=== PATIENT | female | born 1955 | race American Indian/Alaskan Native ===

== ENCOUNTER 2017-03-14 08:43 | Outpatient (CLI) | payer OTHER ==
--- NOTE | 2017-03-14 09:33 | Mammography Report ---
Screening mammogram: Routine views demonstrate a generally fatty replaced breast pattern bilaterally. There is a small circumscribed asymmetry in the superolateral right breast. The findings are otherwise unremarkable. CAD used. Impression: Right breast asymmetry. Recommendation Prior exams are questioned comparison. F/U recommendation will be made following comparison. BI-RADS CATEGORY: 0 = Needs additional imaging evaluation ACR BI-RADS MAMMOGRAPHIC CODES: 0 = Needs additional imaging evaluation; 1 = Negative; 2 = Benign; 3 = Probably benign; 4 = Suspicious; 5 = Malignant; 6 = Known biopsy-proven malignancy COMMENT: 1. Dense breast tissue, i.e., adenosis, fibrocystic changes, etc., may obscure an underlying neoplasm. 2. Approximately 10% of cancers are not detected with mammography. 3. A negative mammography report should not delay biopsy if a clinically suspicious mass is present.
== END 2017-03-14 08:44 | disposition home or self-care (01) ==
LOC: MAMMO 08:43
PROVIDERS: ATTEND Internal Medicine
DX: Z12.31 Encounter for screening mammogram for malignant neoplasm of breast (principal)
CPT/HCPCS: 77067; G0202

== ENCOUNTER 2018-06-08 09:57 | Inpatient (IN) | payer OTHER ==
[2018-06-08] MEDS ORDERED: NACL 0.9% 1000 ML 1,000 ML IV ONE (10:18)
[2018-06-08] MEDS ORDERED: ZOFRAN IV ONE ×2 (10:27→14:41)
[2018-06-08] MEDS ORDERED: MORPHINE IV ONE ×2 (10:27→14:41)
[2018-06-08 10:38] LABS: Basophils % (Auto) 0.4 % (0.0-1.8); Eosinophils # (Auto) 0.1 K/mm3 (0.0-0.4); Hematocrit 35.5 % (30.3-42.9); Hemoglobin 12.1 gm/dl (10.1-14.3); Lymphocytes # (Auto) 2.1 K/mm3 (1.2-5.4); Lymphocytes % (Auto) 24.4 % (13.4-35.0); Mean Corpuscular HGB Conc 34 % (30-34); Mean Corpuscular Volume 90 fl (79-97); Monocytes # (Auto) 0.6 K/mm3 (0.0-0.8); Monocytes % (Auto) 6.4 % (0.0-7.3); Platelet Count 277 K/mm3 (140-440); Red Blood Count 3.96 M/mm3 (3.65-5.03); Red Cell Distribution Width 14.4 % (13.2-15.2)
[2018-06-08 10:46] LABS: Bacteria,Urine 1+ /HPF (Negative); Bilirubin,Urine NEG (Negative); Blood,Urine SM (Negative); Color,Urine Yellow (Yellow); Mucus,Urine FEW /HPF; RBC,Urine < 1.0 /HPF (0.0-6.0); Urobilinogen,Urine < 2.0 mg/dL (<2.0)
[2018-06-08 11:04] LABS: Alanine Aminotransferase 30 units/L (7-56); Albumin 4.3 g/dL (3.9-5); BUN/Creatinine Ratio 20; Blood Urea Nitrogen 16 mg/dL (7-17); Calcium 9.5 mg/dL (8.4-10.2); Hemolysis Index 2
[2018-06-08 11:05] LABS: Bilirubin,Direct < 0.2 mg/dL (0-0.2)
--- NOTE | 2018-06-08 12:29 | Emergency Department Report ---
ED Abdominal Pain HPI - General Chief Complaint: Abdominal Pain Stated Complaint: DIARRHEA/STOMACH PAIN Time Seen by Provider: 06/08/18 10:26 Source: patient Mode of arrival: Ambulatory Limitations: No Limitations - History of Present Illness Initial Comments: This is a 63-year-old female nontoxic, well nourished in appearance, no acute signs of distress presents to the ED with c/o of nausea and vomiting and abdominal pain 2 days. Patient describes vomiting as food content and yellow gastric acid. Patient describes abdominal pain as cramping and aching with level of 8/10 diffuse. Patient denies chest pain, short of breath, fever, chills, headache, stiff neck, numbness or tingling. Patient denies any diarrhea or constipation. Patient denies any recent travels. Patient stated allergies to PCN. MD Complaint: abdominal pain -: days(s) (2) Location: diffuse Radiation: none Severity: mild Severity scale (0 -10): 8 Quality: cramping, aching Consistency: constant Improves With: nothing Worsens With: nothing Associated Symptoms: denies other symptoms. denies: nausea, vomiting, diarrhea, fever, chills, constipation, dysuria, hematemesis, hematochezia, melena, hem aturia, anorexia, syncope - Related Data Allergies Allergy/AdvReac Type Severity Reaction Status Date / Time Penicillins AdvReac Anaphylaxis Verified 06/08/18 09:59 ED Review of Systems ROS: Stated complaint: DIARRHEA/STOMACH PAIN Other details as noted in HPI Constitutional: denies: chills, fever Eyes: denies: eye pain, eye discharge, vision change ENT: denies: ear pain, throat pain Respiratory: denies: cough, shortness of breath, wheezing Cardiovascular: denies: chest pain, palpitations Endocrine: no symptoms reported Gastrointestinal: abdominal pain, nausea, vomiting. denies: diarrhea Genitourinary: denies: urgency, dysuria, discharge Musculoskeletal: denies: back pain, joint swelling, arthralgia Skin: denies: rash, lesions Neurological: denies: headache, weakness, paresthesias Psychiatric: denies: anxiety, depression Hematological/Lymphatic: denies: easy bleeding, easy bruising ED Past Medical Hx - Past Medical History Previous Medical History?: Yes Hx Hypertension: Yes Additional medical history: high cholestrol - Surgical History Past Surgical History?: Yes Additional Surgical History: hysterectomy - Social History Smoking Status: Never Smoker Substance Use Type: None ED Physical Exam - General Limitations: No Limitations General appearance: alert, in no apparent distress - Head Head exam: Present: atraumatic, normocephalic - Eye Eye exam: Present: normal appearance - Neck Neck exam: Present: normal inspection, full ROM. Absent: tenderness, meningismus, lymphadenopathy - Respiratory Respiratory exam: Present: normal lung sounds bilaterally. Absent: respiratory distress, wheezes, rales, rhonchi, stridor, chest wall tenderness, accessory muscle use, decreased breath sounds, prolonged expiratory - Cardiovascular Cardiovascular Exam: Present: regular rate, normal rhythm, normal heart sounds. Absent: bradycardia, tachycardia, irregular rhythm, systolic murmur, diastolic murmur, rubs, gallop - GI/Abdominal GI/Abdominal exam: Present: soft, tenderness, normal bowel sounds. Absent: distended, guarding, rebound, rigid, diminished bowel sounds - Expanded GI/Abdominal Exam Expanded GI/Abdominal exam: Absent: psoas sign, Mohan's sign, Rovsing's sign, tenderness at Mcburney's Point, ascites - Extremities Exam Extremities exam: Present: normal inspection, full ROM - Back Exam Back exam: Present: normal inspection, full ROM - Neurological Exam Neurological exam: Present: alert, oriented X3 - Psychiatric Psychiatric exam: Present: normal affect, normal mood - Skin Skin exam: Present: warm, dry, intact, normal color. Absent: rash ED Course Vital Signs 06/08/18 06/08/18 06/08/18 10:16 10:47 14:49 Temperature 97.9 F Pulse Rate 85 Respiratory 18 15 18 Rate Blood Pressure 137/56 O2 Sat by Pulse 98 100 Oximetry - Reevaluation(s) Reevaluation #1: 06/08/18 12:25 Patient is speaking in full sentences with no signs of distress noted. 06/08/18 14:57 PAtient is resting comfortable. Patient stated is still in pain. Patient was unable to tolerate PO challenge. Will admit patient. - Consultations Consultation #1: 06/08/18 14:27 Patient has been consulted with Erin Brown about patient history, physical exam, and labs/CT agrees to the ED plan of care and admission. ED Medical Decision Making - Lab Data Result diagrams: 06/08/18 10:22 06/08/18 10:35 - Medical Decision Making This is a 62-year-old female that presents with diverticulitis with nausea vomiting. Patient is stable and was examined by me. There is slight abdominal tenderness. Negative signs of symptoms of appendicitis. Labs obtained. UA obtained. CT with contrast of abdomen obtained and dictated by the radiologist. Patient is notified of the report with no questions noted by the patient. Vital signs are stable prior to discharge. Patient received medical treatment with IV levo and Flagyl in the ED. A by mouth challenge has been obtained and patient was not able to tolerate. Patient received several dose of pain and nausea with minimal help. Patient admitted with Dr. Muro. At time of admission, the patient does not seem toxic or ill in appearance. No acute signs of distress noted. Patient agrees to admission treatment plan of care. No further questions noted by the patient. Critical care attestation.: If time is entered above; I have spent that time in minutes in the direct care of this critically ill patient, excluding procedure time. ED Disposition Clinical Impression: Diverticulitis Intractable nausea and vomiting Qualifiers: Vomiting type: unspecified Qualified Code(s): R11.2 - Nausea with vomiting, unspecified Disposition: DC-09 OP ADMIT IP TO THIS HOSP Is pt being admited?: Yes Condition: Stable
--- NOTE | 2018-06-08 13:53 | Cat Scan Report ---
PROCEDURE: CT ABDOMEN PELVIS W CON TECHNIQUE: CT examination of the abdomen with IV contrast CT examination of the pelvis with IV contrast HISTORY: abd pain COMPARISONS: None FINDINGS: Slight linear scar versus atelectasis both lung bases. Degenerative change in the regional skeleton. No evidence of acute fracture. Grade 1 degenerative ant erolisthesis at L4-5. Slight cardiomegaly without pericardial effusion. A smoothly marginated hypodense right hepatic lobe lesion is nonspecific and statistically most likel y reflects a cyst or hemangioma. It is too small to characterize. Normal-appearing gallbladder, common bile diameter, pancreas, and spleen. Nonspecific slight prominence of both adrenals may reflect mild hyperplasia and/or small nodules. Intact normal caliber abdominal aorta with moderate calcified atherosclerotic plaque. Normal caliber IVC. Nonspecific, smoothly marginated, low density, simple appearing right renal lesions are statistically most likely cysts. No evidence of renal calculus or hydronephrosis. Slight distention of the right u reter to the pelvic level without calculus. Distention extends to the level of pelvic inflammatory ch cindy. Very small fat-containing umbilical hernia. No inguinal hernia. No retroperitoneal adenopathy. No jennifer dence of mesenteric mass. Normal-appearing stomach and duodenum. No small bowel distention in the abd omen and pelvis. Trace pelvic free fluid may be reactive. There is moderate sigmoid diverticulosis with mural thickening and adjacent fat stranding, as well as thickening of the sigmoid mesocolon. These findings are most compatible with moderate diverticulitis . No definite CT evidence of perforation or diverticular abscess. Nonspecific diffuse mural thickening in the distal rectum. Slight diverticulosis descending colon. No gross ascites, free air, or colonic distention. Slight prominence of feces in the ascending and transverse colon may reflect mild proximal constipati on. Normal-appearing terminal ileum and appendix. No focal signal abnormality. IMPRESSION: Findings suggest moderate sigmoid diverticulitis. Slight distention of the right ureter may be secon conrad to inflammatory change in the pelvis. Trace pelvic free fluid may be reactive. Nonspecific diffuse mural thickening in the distal rectum may reflect edema, inflammation, or proctit is. Differential includes inflammatory bowel disease Slight prominence of feces in ascending and transverse colon may reflect mild proximal constipation Slight diverticulosis descending colon Nonspecific slight prominence of both adrenals may reflect mild hyperplasia and/or small nodules Slight cardiomegaly without pericardial effusion Grade 1 degenerative anterolisthesis at L4-5 This document is electronically signed by Rogelio Bhandari MD., June 08 2018 01:51:55 PM ET
[2018-06-08] MEDS ORDERED: LEVAQUIN 750MG/150ML 750 MG/150 ML BAG IV ONE (13:57)
[2018-06-08] MEDS ORDERED: FLAGYL 500 MG/100 ML 500 MG/100 ML BAG IV ONE (13:57)
[2018-06-08] MEDS ORDERED: DILAUDID IV PRN (18:38)
[2018-06-09] MEDS ORDERED: SODIUM CHLORIDE FLUSH SYRINGE 10 ML IV PRN (01:14)
[2018-06-09] MEDS ORDERED: ZOFRAN IV PRN (01:14)
[2018-06-09] MEDS ORDERED: REGLAN IV PRN (01:14)
[2018-06-09] MEDS: NACL 0.9% 1000 ML 1,000 ML IV SCH ×2 (01:51→17:06)
[2018-06-09] MEDS: FLAGYL 500 MG/100 ML 500 MG/100 ML BAG IV SCH ×3 (01:52→17:06)
[2018-06-09] MEDS: PEPCID IV SCH ×3 (01:54→23:23)
[2018-06-09 05:09] LABS: Basophils % (Auto) 0.3 % (0.0-1.8); Eosinophils # (Auto) 0.1 K/mm3 (0.0-0.4); Eosinophils % (Auto) 1.7 % (0.0-4.3); Hematocrit 32.2 % (30.3-42.9); Hemoglobin 10.8 gm/dl (10.1-14.3); Lymphocytes # (Auto) 1.7 K/mm3 (1.2-5.4); Mean Corpuscular HGB Conc 34 % (30-34); Mean Corpuscular Volume 91 fl (79-97); Monocytes # (Auto) 0.6 K/mm3 (0.0-0.8); Monocytes % (Auto) 8.1 % (0.0-7.3); Platelet Count 236 K/mm3 (140-440); Red Blood Count 3.55 M/mm3 (3.65-5.03); Red Cell Distribution Width 14.3 % (13.2-15.2)
[2018-06-09] MEDS: TYLENOL PO PRN ×2 (05:27→15:00)
[2018-06-09 05:28] LABS: Alanine Aminotransferase 23 units/L (7-56); Albumin 3.4 g/dL (3.9-5); BUN/Creatinine Ratio 16; Blood Urea Nitrogen 13 mg/dL (7-17); Calcium 8.8 mg/dL (8.4-10.2); Hemolysis Index 11
--- NOTE | 2018-06-09 05:53 | Event Note ---
Date: 06/08/18 See H/p in reports Acute diverticulitis HTN
--- NOTE | 2018-06-09 06:38 | History and Physical Report ---
CHIEF COMPLAINT: Lower abdominal pain with nausea, vomiting for 2 days. HISTORY OF PRESENT ILLNESS: A 62-year-old female with history of hypertension and hyperlipidemia, comes in for lower abdominal pain, first episode for the last 2 days, associated with nausea, vomiting. Abdominal pain about 8 on a scale of 1-10. Cramping pain, mostly suprapubic and left lower quadrant. Pain is cramping and intermittent in nature, sharp. No chest pain, no shortness of breath. No recent travel. Exacerbated by food, relieved by not eating. Location of the pain is suprapubic and left lower quadrant. PAST MEDICAL HISTORY: Significant for hypertension and hyperlipidemia. PAST SURGICAL HISTORY: Hysterectomy for fibroids. SOCIAL HISTORY: Does not smoke. Lives with family. FAMILY HISTORY: Hypertension. REVIEW OF SYSTEMS: Significant for lower abdominal and left lower quadrant pain, associated with nausea, vomiting. Otherwise, review of systems negative. PHYSICAL EXAMINATION: GENERAL: Elderly female, cooperative during examination. VITAL SIGNS: Blood pressure was 129/66, temperature 98.1, pulse is 72, respirations are 20, sats are 97%. HEENT: Unremarkable. Pupils equal and reactive. NECK: Supple, no lymphadenopathy, no thyromegaly. LUNGS: Clear to auscultation and percussion. Good air entry. CARDIOVASCULAR SYSTEM: S1, S2 heard. No gallop, no murmur, no rub. Apical impulse in left fifth intercostal space in midclavicular line. ABDOMEN: Tender in the suprapubic region and left lower quadrant. Slight guarding present. No rebound tenderness present. Bowel sounds are present. EXTREMITIES: Good pedal pulses. No pedal edema. CENTRAL NERVOUS SYSTEM: Alert and oriented x4, nonfocal exam. SKIN: Normal. LABORATORY DATA AND IMAGING STUDIES: CT of the abdomen shows sigmoid diverticulitis. Slight distention of the right ureter, may be secondary to inflammatory change in the pelvis. Nonspecific diffuse mural thickening of the distal rectum, may reflect edema or inflammation of proctitis. Differential includes inflammatory bowel disease. Labs are significant for white count of 8800, H and H is 12.1 and 35.5, platelet count is 277,000. Electrolytes are normal. Serum glucose is slightly high 134. Urine is normal. ASSESSMENT AND PLAN: 1. Acute diverticulitis. The patient initiated on IV Levaquin and IV Flagyl. THE PATIENT HAS PENICILLIN ALLERGY. Hence, Zosyn was not initiated. Surgical consult requested. 2. Hypertension. Hold antihypertensives and put Catapres patch TTS-3 daily. 3. Hyperlipidemia. Will hold the statins till the patient is taking food by mouth. 4. Deep venous thrombosis prophylaxis, Lovenox 40 mg subcutaneous daily. JOB# [id number] VSM/NTS
[2018-06-09] MEDS: LEVAQUIN 750MG/150ML 750 MG/150 ML BAG IV SCH (09:43)
[2018-06-09] MEDS: SODIUM CHLORIDE FLUSH SYRINGE 10 ML IV SCH ×2 (09:44→23:23)
[2018-06-09] MEDS ORDERED: CATAPRES-TTS PATCH TD SCH (10:00)
--- NOTE | 2018-06-09 12:29 | Consultation ---
History of Present Illness Consult date: 06/09/18 Reason for consult: other (diverticulitis) Requesting physician: URIAH CONNOLLY Chief complaint: lower abdominal pain - History of present illness History of present illness: 62yo F with no prior history of diverticulitis presented emergency department with a two-day history of lower abdominal pain associated with nausea. Denies any fevers, chills, vomiting. Does feel bloated. Pain and nausea have resolved. She is feeling better. Her last colonoscopy was in February at [facility]. Past History Past Medical History: hypertension, hyperlipidemia Past Surgical History: hysterectomy (laparoscopic) Social history: denies: smoking, alcohol abuse Family history: no significant family history Medications and Allergies Allergies Allergy/AdvReac Type Severity Reaction Status Date / Time Penicillins AdvReac Anaphylaxis Verified 06/08/18 09:59 Home Medications Medication Instructions Recorded Confirmed Last Taken Type Aspirin EC [Aspirin Enteric Coated 81 mg PO DAILY 06/08/18 06/08/18 Unknown History TAB] AtorvaSTATin [Lipitor] 20 mg PO DAILY 06/08/18 06/08/18 Unknown History Carvedilol [Coreg] 6.25 mg PO DAILY 06/08/18 06/08/18 Unknown History Lisinopril [Zestril] 40 mg PO DAILY 06/08/18 06/08/18 Unknown History cloNIDine [Catapres] 0.1 mg PO DAILY 06/08/18 06/08/18 Unknown History hydroCHLOROthiazide [HCTZ] 25 mg PO DAILY 06/08/18 06/08/18 Unknown History Active Meds: Active Medications Acetaminophen (Tylenol) 650 mg PO Q4H PRN PRN Reason: Pain MILD(1-3)/Fever >100.5/K[facility] Last Admin: 06/09/18 05:27 Dose: 650 mg Documented by: Clonidine HCl (Catapres-Tts Patch) 0.3 mg TD Fr [facility] Last Admin: 06/09/18 11:48 Dose: 0.3 mg Documented by: Famotidine (Pepcid) 20 mg IV BID [facility] Last Admin: 06/09/18 09:44 Dose: 20 mg Documented by: Hydromorphone HCl (Dilaudid) 0.5 mg IV Q3H PRN PRN Reason: Pain , Severe (7-10) Last Admin: 06/08/18 20:30 Dose: 0.5 mg Documented by: Sodium Chloride (Nacl 0.9% 1000 Ml) 1,000 mls @ 75 mls/hr IV DIRECT [facility] Last Admin: 06/09/18 01:51 Dose: 75 mls/hr Documented by: Levofloxacin/Dextrose (Levaquin 750mg/150ml) 750 mg in 150 mls @ 100 mls/hr IV Q24HR [facility]; Protocol Last Admin: 06/09/18 09:43 Dose: 100 mls/hr Documented by: Metronidazole (Flagyl 500 Mg/100 Ml) 500 mg in 100 mls @ 100 mls/hr IV Q8H [facility]; Protocol Last Admin: 06/09/18 10:11 Dose: 100 mls/hr Documented by: Metoclopramide HCl (Reglan) 10 mg IV Q6H PRN PRN Reason: Nausea And Vomiting Ondansetron HCl (Zofran) 4 mg IV Q8H PRN PRN Reason: Nausea And Vomiting Sodium Chloride (Sodium Chloride Flush Syringe 10 Ml) 10 ml IV BID [facility] Last Admin: 06/09/18 09:44 Dose: 10 ml Documented by: Sodium Chloride (Sodium Chloride Flush Syringe 10 Ml) 10 ml IV PRN PRN PRN Reason: LINE FLUSH Review of Systems - Constitutional no fever, no chills, no chronic pain - Cardiovascular no chest pain, no lightheadedness, no shortness of breath - Respiratory no cough - Gastrointestinal abdominal pain, nausea, dyspepsia/bloating, no vomiting, no hematemesis, no coffee ground emesis, no BRBPR, no melena, no hematochezia - Genitourinary Genitourinary: no dysuria - Muskuloskeletal no low back pain - Integumentary no rash, no wounds Exam Vital Signs Temp Pulse Resp BP Pulse Ox 97.9 F 85 18 137/56 98 06/08/18 10:16 06/08/18 10:16 06/08/18 10:16 06/08/18 10:16 06/08/18 10:16 - General physical appearance Positive: well nourished, no distress, no pain, obese - Eyes Positive: normal occular movement - Respiratory Positive: normal expansion, normal respiratory effort, clear to auscultation - Cardiovascular Rhythm: regular - Abdomen Abdomen: Present: soft, bowel sounds hypoactive. Absent: tender, distended, masses, rebound, guarding, rigid - Integumentary no rash, no growths, no abnormal pigmentation - Neurologic Neurologic: alert and oriented to time, place and person, motor strength and sensation are grossly intact - Psychiatric Psychiatric: appropriate mood/affect, intact judgment & insight Results - Labs 06/09/18 04:32 06/09/18 04:32 Abnormal lab results 06/09/18 06/09/18 Range/Units 04:32 04:32 RBC 3.55 L (3.65-5.03) M/mm3 [place] % (Auto) 8.1 H (0.0-7.3) % Glucose 108 H (65-100) mg/dL Albumin 3.4 L (3.9-5) g/dL Diabetes panel 06/09/18 Range/Units 04:32 Sodium 141 (137-145) mmol/L Potassium 4.1 (3.6-5.0) mmol/L Chloride 101.2 (98-107) mmol/L Carbon Dioxide 26 (22-30) mmol/L BUN 13 (7-17) mg/dL Creatinine 0.8 (0.7-1.2) mg/dL Glucose 108 H (65-100) mg/dL Calcium 8.8 (8.4-10.2) mg/dL AST 18 (5-40) units/L ALT 23 (7-56) units/L Alkaline Phosphatase 82 (35-129) units/L Total Protein 6.9 (6.3-8.2) g/dL Albumin 3.4 L (3.9-5) g/dL Calcium panel 06/09/18 Range/Units 04:32 Calcium 8.8 (8.4-10.2) mg/dL Albumin 3.4 L (3.9-5) g/dL Pituitary panel 06/09/18 Range/Units 04:32 Sodium 141 (137-145) mmol/L Potassium 4.1 (3.6-5.0) mmol/L Chloride 101.2 (98-107) mmol/L Carbon Dioxide 26 (22-30) mmol/L BUN 13 (7-17) mg/dL Creatinine 0.8 (0.7-1.2) mg/dL Glucose 108 H (65-100) mg/dL Calcium 8.8 (8.4-10.2) mg/dL Adrenal panel 06/09/18 Range/Units 04:32 Sodium 141 (137-145) mmol/L Potassium 4.1 (3.6-5.0) mmol/L Chloride 101.2 (98-107) mmol/L Carbon Dioxide 26 (22-30) mmol/L BUN 13 (7-17) mg/dL Creatinine 0.8 (0.7-1.2) mg/dL Glucose 108 H (65-100) mg/dL Calcium 8.8 (8.4-10.2) mg/dL Total Bilirubin 0.40 (0.1-1.2) mg/dL AST 18 (5-40) units/L ALT 23 (7-56) units/L Alkaline Phosphatase 82 (35-129) units/L Total Protein 6.9 (6.3-8.2) g/dL Albumin 3.4 L (3.9-5) g/dL - Imaging CT scan - abdomen: report reviewed, image reviewed CT scan - pelvis: report reviewed, image reviewed Assessment and Plan - Patient Problems (1) Diverticulitis Current Visit: Yes Status: Acute Plan to address problem: Patient is stable. Patient appears to have uncomplicated diverticulitis in the sigmoid colon. Pain has resolved. It would be okay to start her on a clear liquid diet. At this time she is not in need of any surgical intervention. Have educated her on the importance of increased fiber and hydration. She will need to follow up with her primary care physician as she has just left [facility]. I recommended that she get the c-scope results from [facility] and give it to the primary care physician. As she just had one in February, she should not need a follow-up c-scope unless there was something concerning on the original report. At this time, would monitor her and educate her on healthier lifestyle. If she has another episode, then would consider surgery. F/u in surgical clinic prn. Will follow along. She may be discharged when her diet has been advanced and tolerated and she has been transitioned to oral antibiotics. Please call with any questions. Time=30min
--- NOTE | 2018-06-09 15:45 | Progress Note ---
Assessment and Plan Acute diverticulitis HTN, stable HLD, on statin DVT Px - cont abx, clear liquid diet - GS following, recommended no surgical need - resume home meds, DVt Px - advance diet as tolerated Brief History: 62yo F with no prior history of diverticulitis presented emergency department with a two-day history of lower abdominal pain associated with nausea. CT abdomen/pelvis showed sigmoid diverticulitis. Placed on iv fluid, iv abx, GS consulted, admitted for further evaluation and management. CT abdoemn/pelvis: Findings suggest moderate sigmoid diverticulitis. Slight distention of the right ureter may be secondary to inflammatory change in the pelvis. Trace pelvic free fluid may be reactive. Nonspecific diffuse mural thickening in the distal rectum may reflect edema, inflammation, or proctitis. Differential includes inflammatory bowel disease Slight prominence of feces in ascending and transverse colon may reflect mild proximal constipation Slight diverticulosis descending colon Nonspecific slight prominence of both adrenals may reflect mild hyperplasia and/or small nodules Slight cardiomegaly without pericardial effusion Grade 1 degenerative anterolisthesis at L4-5 Subjective Date of service: 06/09/18 Interval history: pt seen and examined c/o LLQ pain, but tolerated clear liquid diet had BM today Objective - Constitutional Vitals: Vital Signs - 12hr 06/09/18 06/09/18 05:42 12:48 Temperature 97.8 F 97.8 F Pulse Rate 73 77 Respiratory 18 18 Rate Blood Pressure 127/89 152/83 O2 Sat by Pulse 98 98 Oximetry General appearance: Present: no acute distress, obese - EENT Eyes: PERRL, EOM intact ENT: hearing intact, clear oral mucosa Ears: bilateral: normal - Neck Neck: supple, normal ROM - Respiratory Respiratory effort: normal Respiratory: bilateral: CTA - Cardiovascular Rhythm: regular Heart Sounds: Present: S1 & S2. Absent: gallop, rub Extremities: pulses intact, No edema, normal color, Full ROM - Gastrointestinal General gastrointestinal: Present: soft, non-distended, normal bowel sounds Localized gastrointestinal: tender: LLQ - Integumentary Integumentary: clear, warm, dry - Musculoskeletal Musculoskeletal: 1, strength equal bilaterally - Neurologic Neurologic: moves all extremities - Psychiatric Psychiatric: memory intact, appropriate mood/affect, intact judgment & insight - Labs CBC & Chem 7: 06/10/18 03:54 06/10/18 03:54 Labs: Abnormal lab results 06/09/18 06/09/18 Range/Units 04:32 04:32 RBC 3.55 L (3.65-5.03) M/mm3 [place] % (Auto) 8.1 H (0.0-7.3) % Glucose 108 H (65-100) mg/dL Albumin 3.4 L (3.9-5) g/dL
[2018-06-09] MEDS: COREG PO SCH (23:22)
[2018-06-10] MEDS: FLAGYL 500 MG/100 ML 500 MG/100 ML BAG IV SCH ×2 (02:00→12:08)
[2018-06-10] MEDS: TYLENOL PO PRN (02:53)
[2018-06-10 04:18] LABS: Basophils % (Auto) 0.5 % (0.0-1.8); Eosinophils # (Auto) 0.2 K/mm3 (0.0-0.4); Eosinophils % (Auto) 4.2 % (0.0-4.3); Hematocrit 31.8 % (30.3-42.9); Hemoglobin 10.8 gm/dl (10.1-14.3); Lymphocytes # (Auto) 1.5 K/mm3 (1.2-5.4); Lymphocytes % (Auto) 28.1 % (13.4-35.0); Mean Corpuscular HGB Conc 34 % (30-34); Mean Corpuscular Volume 90 fl (79-97); Monocytes # (Auto) 0.5 K/mm3 (0.0-0.8); Monocytes % (Auto) 9.3 % (0.0-7.3); Platelet Count 241 K/mm3 (140-440); Red Blood Count 3.52 M/mm3 (3.65-5.03); Red Cell Distribution Width 14.4 % (13.2-15.2)
[2018-06-10 04:57] LABS: Alanine Aminotransferase 17 units/L (7-56); Albumin 3.6 g/dL (3.9-5); BUN/Creatinine Ratio 11; Blood Urea Nitrogen 9 mg/dL (7-17); Calcium 8.6 mg/dL (8.4-10.2); Hemolysis Index 2
[2018-06-10] MEDS: NACL 0.9% 1000 ML 1,000 ML IV SCH (06:23)
[2018-06-10] MEDS: LEVAQUIN 750MG/150ML 750 MG/150 ML BAG IV SCH (10:00)
[2018-06-10] MEDS: PEPCID IV SCH (10:00)
[2018-06-10] MEDS: COREG PO SCH ×2 (10:01→11:00)
--- NOTE | 2018-06-10 10:47 | Progress Note ---
Assessment and Plan - Patient Problems (1) Diverticulitis Current Visit: Yes Status: Acute Plan to address problem: Patient is stable. Tolerated clears well. Advance to soft diet. Once she is tolerating soft diet and oral Abx, she may be discharged. Would treat with oral Abx for 10-14 days. Should f/u with PCP to establish care. She should get her [facility] records transferred to PCP so they can evaluate and decide if GI out-pt consult needed. F/u with me prn. Please call with questions. Time=10min Subjective Date of service: 06/10/18 Patient Reports: Positive: no new complaints, feels better, tolerating liquids well. Negative: nausea, vomiting Objective Vital Signs - 12hr 06/09/18 06/10/18 06/10/18 23:22 05:22 10:01 Temperature 97.8 F Pulse Rate 80 74 71 Respiratory 18 Rate Blood Pressure 145/78 126/48 124/60 O2 Sat by Pulse 94 Oximetry - General physical appearance no distress, no pain, obese, other (looks well) - Eyes normal occular movement - Respiratory normal expansion, normal respiratory effort - Abdomen soft, not tender, bowel sounds hypoactive, not distended, not guarding, not rigid - Integumentary no rash, no growths, no abnormal pigmentation - Psychiatric oriented to time, oriented to person, oriented to place, speech is normal, memory intact - Labs 06/10/18 03:54 06/10/18 03:54 Diabetes panel 06/10/18 Range/Units 03:54 Sodium 140 (137-145) mmol/L Potassium 3.6 (3.6-5.0) mmol/L Chloride 100.8 (98-107) mmol/L Carbon Dioxide 28 (22-30) mmol/L BUN 9 (7-17) mg/dL Creatinine 0.8 (0.7-1.2) mg/dL Glucose 106 H (65-100) mg/dL Calcium 8.6 (8.4-10.2) mg/dL AST 16 (5-40) units/L ALT 17 (7-56) units/L Alkaline Phosphatase 72 (35-129) units/L Total Protein 6.6 (6.3-8.2) g/dL Albumin 3.6 L (3.9-5) g/dL Calcium panel 06/10/18 Range/Units 03:54 Calcium 8.6 (8.4-10.2) mg/dL Albumin 3.6 L (3.9-5) g/dL Pituitary panel 06/10/18 Range/Units 03:54 Sodium 140 (137-145) mmol/L Potassium 3.6 (3.6-5.0) mmol/L Chloride 100.8 (98-107) mmol/L Carbon Dioxide 28 (22-30) mmol/L BUN 9 (7-17) mg/dL Creatinine 0.8 (0.7-1.2) mg/dL Glucose 106 H (65-100) mg/dL Calcium 8.6 (8.4-10.2) mg/dL Adrenal panel 06/10/18 Range/Units 03:54 Sodium 140 (137-145) mmol/L Potassium 3.6 (3.6-5.0) mmol/L Chloride 100.8 (98-107) mmol/L Carbon Dioxide 28 (22-30) mmol/L BUN 9 (7-17) mg/dL Creatinine 0.8 (0.7-1.2) mg/dL Glucose 106 H (65-100) mg/dL Calcium 8.6 (8.4-10.2) mg/dL Total Bilirubin 0.40 (0.1-1.2) mg/dL AST 16 (5-40) units/L ALT 17 (7-56) units/L Alkaline Phosphatase 72 (35-129) units/L Total Protein 6.6 (6.3-8.2) g/dL Albumin 3.6 L (3.9-5) g/dL
[2018-06-10] MEDS ORDERED: HALFPRIN EC PO SCH (12:00)
[2018-06-10] MEDS ORDERED: COREG PO SCH ×2 (12:00→22:00)
[2018-06-10] MEDS ORDERED: CATAPRES PO SCH ×2 (12:00→22:00)
[2018-06-10] MEDS ORDERED: ZESTRIL PO SCH (12:00)
[2018-06-10] MEDS ORDERED: HCTZ PO SCH (12:00)
[2018-06-10] MEDS: SODIUM CHLORIDE FLUSH SYRINGE 10 ML IV SCH (13:22)
--- NOTE | 2018-06-10 14:56 | Discharge Summary ---
Providers - Providers Date of Admission: 06/08/18 16:40 Date of discharge: 06/10/18 Attending physician: KOBE DELGADO 06/09/18 01:28 Consult to Physician [CONS] Routine Comment: Consulting Provider: NATHEN LIZAMA Physician Instructions: Reason For Exam: Diverticulitis [facility] Condition: Stable Pertinent studies: CT abdoemn/pelvis: Findings suggest moderate sigmoid diverticulitis. Slight distention of the right ureter may be secondary to inflammatory change in the pelvis. Trace pelvic free fluid may be reactive. Nonspecific diffuse mural thickening in the distal rectum may reflect edema, inflammation, or proctitis. Differential includes inflammatory bowel disease Slight prominence of feces in ascending and transverse colon may reflect mild proximal constipation Slight diverticulosis descending colon Nonspecific slight prominence of both adrenals may reflect mild hyperplasia and/or small nodules Slight cardiomegaly without pericardial effusion Grade 1 degenerative anterolisthesis at L4-5. Hospital course: Brief History: 62yo F with no prior history of diverticulitis presented emergency department with a two-day history of lower abdominal pain associated with nausea. CT abdomen/pelvis showed sigmoid diverticulitis. Placed on iv fluid, iv abx, GS consulted, admitted for further evaluation and management. She was placed on abx, clear liquid diet and advanced as tolerated, GS was following, recommended no surgical need, resumed home meds. Her symptom improved with supportive care, was tolerating diet and was then discharged home in stable condition with outpt followup. Discharge diagnosis: Acute diverticulitis HTN, stable HLD, on statin DVT Px Disposition: TO HOME OR SELFCARE Time spent for discharge: 34 minutes Core Measure Documentation - Palliative Care Palliative Care/ Comfort Measures: Not Applicable - Core Measures Any of the following diagnoses?: none Exam - Physical Exam Narrative exam: General appearance: Present: no acute distress, obese - EENT Eyes: PERRL, EOM intact ENT: hearing intact, clear oral mucosa Ears: bilateral: normal - Neck Neck: supple, normal ROM - Respiratory Respiratory effort: normal Respiratory: bilateral: CTA - Cardiovascular Rhythm: regular Heart Sounds: Present: S1 & S2. Absent: gallop, rub Extremities: pulses intact, No edema, normal color, Full ROM - Gastrointestinal General gastrointestinal: Present: soft, non-distended, normal bowel sounds - Integumentary Integumentary: clear, warm, dry - Musculoskeletal Musculoskeletal: 1, strength equal bilaterally - Neurologic Neurologic: moves all extremities - Psychiatric Psychiatric: memory intact, appropriate mood/affect, intact judgment & insight - Constitutional Vitals: Temp Pulse Resp BP Pulse Ox 99.7 F H 64 18 114/53 100 06/10/18 11:40 06/10/18 13:22 06/10/18 11:40 06/10/18 13:22 06/10/18 11:40 Plan Activity: advance as tolerated Weight Bearing Status: Weight Bear as Tolerated Diet: other (full liquid diet and advance as tolerated) Follow up with: ADRIANO ALEXANDRE MD [Primary Care Provider] - 7 Days Prescriptions: metroNIDAZOLE [Flagyl] 500 mg PO Q8HR #30 tablet levoFLOXacin [Levaquin] 750 mg PO QDAY #10 tablet
[2018-06-10 15:58] VITALS: BP 148/84
== END 2018-06-10 16:32 | disposition home or self-care (01) | DRG 392 ==
LOC: ED 09:57 → 3A 16:40
PROVIDERS: ADMIT Internal Medicine; ATTEND Internal Medicine
DX: K57.32 Diverticulitis of large intestine without perforation or abscess without bleeding (principal); E86.0 Dehydration; I10 Essential (primary) hypertension; Z88.0 Allergy status to penicillin; E78.00 Pure hypercholesterolemia, unspecified; Z90.710 Acquired absence of both cervix and uterus; E78.5 Hyperlipidemia, unspecified; Z79.82 Long term (current) use of aspirin; Z79.899 Other long term (current) drug therapy
CPT/HCPCS: 36415; 74177; 80048; 80053; 80076; 81001; 83690; 85025; G0378; A9270-GY; J1170; J1956; J2270; J2405; J7030; Q9967